=== PATIENT | male | born 1935 | race Hispanic/Latino ===

== ENCOUNTER 2017-02-21 13:55 | Outpatient (CLI) | payer MEDICARE ==
[2017-02-21 15:02] LABS: Appearance,CSF Clear
[2017-02-21 15:11] LABS: CSF Diff Status Complete; White Blood Cell,CSF 7 /mm3 (1-10)
[2017-02-21 17:11] LABS: Glucose,CSF 107 mg/dL
== END 2017-02-21 13:56 | disposition home or self-care (01) ==
LOC: LABHHL 13:55
PROVIDERS: ATTEND Neurological Surgery
DX: G91.2 (Idiopathic) normal pressure hydrocephalus (principal)
CPT/HCPCS: 82947; 84160; 87116; 89051